=== PATIENT | female | born 1955 | race Caucasian/White ===

== ENCOUNTER 2016-12-09 10:17 | Emergency (ER) | payer MEDICAID ==
[~2016-12-09] VITALS: Ht 162.6 cm; Wt 54.4 kg
[2016-12-09 10:21] VITALS: BP_SYST 113
[2016-12-09 11:06] LABS: BILIRUBIN,URINE NEGATIVE (NEGATIVE); BLOOD, URINE NEGATIVE (NEGATIVE); CLARITY/URINE CLEAR (CLEAR); COLOR,URINE YELLOW (YELLOW); GLUCOSE,URINE NEGATIVE (NEGATIVE); KETONES,URINE NEGATIVE (NEGATIVE); LEUKOCYTE ESTERASE ,URINE 1+ (NEGATIVE); NITRITE, URINE POSITIVE (NEGATIVE); PROTEIN URINE NEGATIVE (NEGATIVE); UROBILINOGEN,URINE 0.2 (0.2-1.0)
[2016-12-09] MEDS ORDERED: SULFAMETHOXAZOLE/TRIMETHOPR DS 1 TABLET PO ONE (11:15)
[2016-12-09 11:16] LABS: BASOPHILS # (AUTO) 0.1 K/uL (0.0-0.2); BASOPHILS % (AUTO) 1.2 % (0.0-2.0); EOSINOPHILS # (AUTO) 0.2 K/uL (0.0-0.4); EOSINOPHILS % (AUTO) 2.8 % (0.0-4.0); HEMATOCRIT 39.5 % (36-48); HEMOGLOBIN 13.2 g/dL (12.0-16.0); LYMPHOCYTES # (AUTO) 2.2 K/uL (1.0-5.5); MEAN CORPUSCULAR HEMOGLOBIN 31 pg (27-31); MEAN CORPUSCULAR HGB CONC 33 % (32-36); MEAN CORPUSCULAR VOLUME 93 fL (79.0-98.0); MONOCYTES # (AUTO) 0.7 K/uL (0.0-1.0); MONOCYTES % (AUTO) 10.4 % (1.7-9.3); NEUTROPHILS # (AUTO) 3.2 K/uL (1.8-7.7); NEUTROPHILS % (AUTO) 50.6 % (40.0-70.0); PLATELET COUNT (AUTO) 258 K/uL (130-430); RED BLOOD CELL COUNT(AUTO) 4.23 MIL/uL (4.2-6.2); RED CELL DISTRIBUTION WIDTH 12.5 % (9.0-15.0); WHITE BLOOD COUNT (AUTO) 6.4 K/uL (4.8-10.8)
[2016-12-09 11:18] LABS: BACTERIA,URINE MODERATE /HPF (None Seen); MUCUS,URINE None Seen /LPF (None Seen); RBC,URINE 0-3 /HPF (0-3)
[2016-12-09 11:21] LABS: CALCIUM 9.4 mg/dL (8.4-11.0); CREATININE 0.74 mg/dL (0.55-1.30); POTASSIUM 3.6 mmol/L (3.5-5.1)
[2016-12-09 11:26] LABS: TOTAL BILIRUBIN 0.3 mg/dL (0.0-1.0)
[2016-12-09 11:40] VITALS: BP_SYST 110
== END 2016-12-09 11:40 | disposition home or self-care (01) ==
LOC: SED 10:17
DX: K59.00 Constipation, unspecified (principal); N39.0 Urinary tract infection, site not specified; J44.9 Chronic obstructive pulmonary disease, unspecified; Z98.51 Tubal ligation status; Z88.0 Allergy status to penicillin
CPT/HCPCS: 36415; 80053; 81000-TC; 83690-TC; 85025; 87086; 87186-TC; 99285

== ENCOUNTER 2017-05-01 12:32 | Emergency (ER) | payer MEDICAID ==
[~2017-05-01] VITALS: Ht 162.6 cm; Wt 51.3 kg
[2017-05-01 12:35] VITALS: BP_SYST 137
--- NOTE | 2017-05-01 12:35 | NUR ---
BROUGHT BACK TO BED #4 AND TRIAGED. REPORT GIVEN TO LUIS
--- NOTE | 2017-05-01 12:40 | NUR ---
PT STATES THAT SHE IS A RECOVERING ADDICT AND DOES NOT TAKE ANY NARCOTICS, STATES SHE HAS TYLENOL #3'S AT HOME AND DOES NOT WANT ANY NARCOTICS
--- NOTE | 2017-05-01 12:45 | NUR ---
ER Dr. Hampton at bedside examining patient.
--- NOTE | 2017-05-01 12:47 | NUR ---
Pt presents to ER c/o bilateral foot pain for the past 5 months. Pt reports being seen in the ER several times and being sent home with prescription pain meds. 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 Pt describes pain as "stepping on glass" sharp pain and reports 10/10. Pt denies any significant medical history. Pt AOX4, allergy to penicllin noted.
[2017-05-01 13:25] VITALS: BP_SYST 137
--- NOTE | 2017-05-01 13:25 | NUR ---
Patient given written and verbal discharge instructions and verbalizes understanding. ER MD discussed with patient the results and treatment provided. Patient in stable condition. ID arm band removed. Rx of Spectazole given. Patient educated on pain management and to follow up with PMD. Pain Scale 8/10 on feet. Opportunity for questions provided and answered.
== END 2017-05-01 13:25 | disposition home or self-care (01) ==
LOC: SED 12:32
DX: L84 Corns and callosities (principal); B35.3 Tinea pedis; J44.9 Chronic obstructive pulmonary disease, unspecified; Z88.0 Allergy status to penicillin
CPT/HCPCS: 99283